=== PATIENT | male | born 1960 | race African-American/Black ===

== ENCOUNTER 2023-07-14 10:07 | Emergency (ER) | payer OTHER ==
[2023-07-14 10:26] VITALS: BP 151/88; PULSE 89; RESP 20; TEMP 98.3; BMI 23.1
[2023-07-14] MEDS ORDERED: ACETAMINOPHEN 500 MG TABLET (FP) PO ONE (11:43)
[2023-07-14] MEDS ORDERED: ACETAMINOPHEN 500 MG TABLET (FP) ONE (12:31)
== END 2023-07-14 13:46 | disposition home or self-care (01) ==
LOC: JERFT 10:07
DX: S69.91XA Unspecified injury of right wrist, hand and finger(s), initial encounter (principal); S59.902A Unspecified injury of left elbow, initial encounter; M25.531 Pain in right wrist; M25.522 Pain in left elbow; W01.0XXA Fall on same level from slipping, tripping and stumbling without subsequent striking against object, initial encounter; Z20.822 Contact with and (suspected) exposure to COVID-19
CPT/HCPCS: 0241U-QW; 73070-TC-LT-FY; 73110-TC-RT-FY; 73130-TC-RT-FY; 99284-25